=== PATIENT | female | born 1995 | race Caucasian/White ===

== ENCOUNTER 2019-05-09 15:22 | Emergency (ER) | payer MEDICAID, SELFPAY ==
[2019-05-09 15:40] VITALS: BP 138/85; PULSE 73; RESP 16; TEMP 36.8; O2SAT 100; BMI 18.0
--- NOTE | 2019-05-09 15:52 | W.ED.GENADLT ---
HPI - General Adult General: Chief complaint: General Medical Stated complaint: N/V Time Seen by Provider: 05/09/19 15:49 History of Present Illness: HPI narrative: Patient is a 23-year-old female who comes to the ED with nausea and vomiting. The nausea and vomiting started this morning when she woke up. She says she has vomited about 5 times since woke up this morning and has been unable to keep anything down. She currently does not feel nauseous that she knows last time she tried to eat or drink anything she started getting nauseous afterwards and vomited. She denies any fever, But says she starting having the chills. Patient states she could be . Her last period was 2 weeks ago and she says it was abnormally light and only lasted 5 days. She says her normal periods last for a week and have moderate bleeding. She does not have any abdominal pain or tenderness and denies diarrhea or constipation. Denies chest pain, shortness of breath, upper respiratory symptoms, dysuria, hematuria. Review of Systems General: Reports: 10 or more systems reviewed and unremarkable except in HPI and below PFSH ED PFSH: Statuses (acute, chronic, etc) shown below reflect problem list status as previously entered and may not be historically accurate Social History Smoking and tobacco status: never smoked Female Reproductive History: Date of last menstrual period: 05/02/19 Physical Exam Narrative: EXAM NARRATIVE: Patient is a 23-year-old female who is sitting comfortably on the exam bed when I entered the room. She is showing no signs of acute distress or pain. Const: COMMON NORMALS: oriented x3 HENMT: COMMON NORMALS: normocephalic HEAD & SCALP: normocephalic MOUTH: oral and palatal mucosa normal THROAT: posterior oropharynx normal and uvula midline Neck/C-Spine: COMMON NORMALS: supple GENERAL: Yes normal visual inspection Resp: COMMON NORMALS: normal respiratory effort, no retractions, no use of accessory muscles and clear to auscultation bilaterally AUSCULTATION: clear to auscultation bilaterally Cardio: COMMON NORMALS: regular rate, regular rhythm, S1 normal heart sound, S2 normal heart sound, no gallops, no clicks, no murmurs and peripheral pulses 2+ throughout RATE: regular rate RHYTHM: regular rhythm HEART SOUNDS: S1 normal and S2 normal PERIPHERAL PULSES: pulses 2+ throughout GI: COMMON NORMALS: normal to inspection, nondistended, normoactive bowel sounds, soft to palpation, non-tender and no masses PALPATION: Yes soft : COMMON NORMALS: Yes no CVA tenderness BLADDER/KIDNEY EXAM: Yes no CVA tenderness Back/Pelvis: COMMON NORMALS: no CVA tenderness Neuro: COMMON NORMALS: oriented x3 and moves all extremities Course Vital Signs: Vital signs: Vital Signs Temperature 98.3 F 05/09/19 15:40 Pulse Rate 61 05/09/19 17:44 Respiratory Rate 16 05/09/19 15:40 Blood Pressure 119/81 05/09/19 17:44 Pulse Oximetry 100 05/09/19 17:44 [facility] - General Adult Lab Data: Attestation: I reviewed the patient's lab results. Labs: Lab Results 05/09/19 05/09/19 05/09/19 Range/Units 15:55 15:55 15:55 WBC 9.0 (4.0-10.0) 10^3/ uL RBC 4.29 (4.1-5.3) 10^6/u L Hgb 12.0 (11.5-15.3) g/dL Hct 36.1 L (37.0-47.0) % MCV 84.1 (81-99) fL MCH 28.0 (28.0-34.0) pg MCHC 33.2 (30.0-36.0) g/dL RDW 11.9 L (12.1-15.1) % Plt Count 369 (130-400) 10^3/c mm MPV 10.3 (7.4-10.4) fL Neut % (Auto) 84.4 % Lymph % (Auto) 10.6 % [place] % (Auto) 4.1 % Eos % (Auto) 0.2 % Baso % (Auto) 0.4 % Neut # (Auto) 7.6 (1.8-7.7) 10^3/u L Lymph # (Auto) 1.0 (0.8-4.8) 10^3/u L [place] # (Auto) 0.4 (0.2-0.9) 10^3/u L Eos # (Auto) 0.0 (0.0-0.8) 10^3/u L Baso # (Auto) 0.0 (0.0-0.1) 10^3/u L Nucleated RBC % (a uto) 0 % Nucleated RBCs # 0.0 /100WBC Sodium 141 (136-145) mmol/L Potassium 3.2 L (3.5-5.1) mmol/L Chloride 103 (98-107) mmol/L Carbon Dioxide 26 (22-29) mmol/L Anion Gap 15.2 (5-19) BUN 9 (6-20) mg/dL Creatinine 0.6 (0.5-0.9) mg/dL GFR Calculation 126.2 (90-130) mL/min Glucose 124 H (74-109) mg/dL Calcium 10.0 (8.5-10.5) mg/dL Total Bilirubin 0.4 (0.15-1.2) mg/dL AST 22 (0-32) U/L ALT 20 (0-33) U/L Alkaline Phosphata se 102 (35-105) IU/L Total Protein 7.4 (6.6-8.7) g/dL Albumin 4.8 (3.5-5.2) g/dL Globulin 2.6 (1.3-4.6) g/dL TSH 0.83 (0.27-4.20) uIU/ mL HCG, Qual Negative (Negative) Urine Color (Yellow) Urine Appearance (CLEAR) Urine pH (5-7) Ur Specific Gravit y (1.005-1.030) Urine Protein (Negative) Urine Glucose (UA) (Normal) Urine Ketones (Negative) Urine Occult Blood (Negative) Urine Nitrate (Negative) Urine Bilirubin (NEGATIVE) Urine Urobilinogen (Negative) mg/dL Ur Leukocyte Lesley ase (Negative) Urine RBC (0-2) /hpf Urine WBC (0-5) /hpf Ur Squamous Epith Cells (0-5) Urine Bacteria (NONE) Hyaline Casts Urine Mucus 05/09/19 Range/Units 16:00 WBC (4.0-10.0) 10^3/ uL RBC (4.1-5.3) 10^6/u L Hgb (11.5-15.3) g/dL Hct (37.0-47.0) % MCV (81-99) fL MCH (28.0-34.0) pg MCHC (30.0-36.0) g/dL RDW (12.1-15.1) % Plt Count (130-400) 10^3/c mm MPV (7.4-10.4) fL Neut % (Auto) % Lymph % (Auto) % [place] % (Auto) % Eos % (Auto) % Baso % (Auto) % Neut # (Auto) (1.8-7.7) 10^3/u L Lymph # (Auto) (0.8-4.8) 10^3/u L [place] # (Auto) (0.2-0.9) 10^3/u L Eos # (Auto) (0.0-0.8) 10^3/u L Baso # (Auto) (0.0-0.1) 10^3/u L Nucleated RBC % (a uto) % Nucleated RBCs # /100WBC Sodium (136-145) mmol/L Potassium (3.5-5.1) mmol/L Chloride (98-107) mmol/L Carbon Dioxide (22-29) mmol/L Anion Gap (5-19) BUN (6-20) mg/dL Creatinine (0.5-0.9) mg/dL GFR Calculation (90-130) mL/min Glucose (74-109) mg/dL Calcium (8.5-10.5) mg/dL Total Bilirubin (0.15-1.2) mg/dL AST (0-32) U/L ALT (0-33) U/L Alkaline Phosphata se (35-105) IU/L Total Protein (6.6-8.7) g/dL Albumin (3.5-5.2) g/dL Globulin (1.3-4.6) g/dL TSH (0.27-4.20) uIU/ mL HCG, Qual (Negative) Urine Color Yellow (Yellow) Urine Appearance Sl hazy (CLEAR) Urine pH 8 H (5-7) Ur Specific Gravit y 1.015 (1.005-1.030) Urine Protein Trace (Negative) Urine Glucose (UA) Norm (Normal) Urine Ketones 1+ H (Negative) Urine Occult Blood 2+ H (Negative) Urine Nitrate Negative (Negative) Urine Bilirubin Neg (NEGATIVE) Urine Urobilinogen 4 H (Negative) mg/dL Ur Leukocyte Lesley ase Trace H (Negative) Urine RBC 0-4 H (0-2) /hpf Urine WBC 15-25 H (0-5) /hpf Ur Squamous Epith Cells 15-25 H (0-5) Urine Bacteria 1+ H (NONE) Hyaline Casts Rare Urine Mucus 1+ Discharge Plan Discharge Patient Disposition: Home, Self-Care Clinical Impression: Gastroenteritis Condition: Stable Discharge Orders: Discharge Order (Routine); Ordered 05/09/19 Ordered By: Cruz Ozuna Referrals: Conor Candelaria MD [Family Provider] - Discharge Diet: Advance as tolerated Discharge Activity: Increase activity as tolerated Patient Instructions: Acute Nausea and Vomiting (ED) Activity Restrictions/Additional Instructions: Follow-up with medical provider as directed. Take medications as prescribed. Return to the ER or your medical provider if condition worsens. Please read and understand discharge instructions. If any questions ask please. Discharge Date/Time: 05/09/19 17:44 Coding Level of Care Code ED Bead Wrapper for Katie Thompson
[2019-05-09 16:02] VITALS: O2SAT 100
[2019-05-09 16:19] LABS: Basophils % 0.4 %; Eosinophils % 0.2 %; Hematocrit 36.1 % (37.0-47.0); Lymphocytes % 10.6 %; Mean Corpuscular HGB Conc 33.2 g/dL (30.0-36.0); Mean Corpuscular Volume 84.1 fL (81-99); Mean Platelet Volume 10.3 fL (7.4-10.4); Monocytes # 0.4 10^3/uL (0.2-0.9); Monocytes % 4.1 %; Neutrophils # 7.6 10^3/uL (1.8-7.7); Neutrophils % 84.4 %; Nucleated Red Blood Cells % 0 %; Platelet Count 369 10^3/cmm (130-400); Red Blood Count 4.29 10^6/uL (4.1-5.3); Red Cell Distribution Width 11.9 % (12.1-15.1)
[2019-05-09] MEDS: ondansetron 2 mg/ML SDV 2 mL 4 MG IVP (16:31)
[2019-05-09] MEDS: sodium chloride 0.9% 1,000 ML 999 ML IV (16:31)
[2019-05-09] MEDS: ketorolac 30 mg/mL INJ IVP (16:31)
[2019-05-09 16:38] LABS: HCG, Serum Qual Negative (Negative)
[2019-05-09 16:53] LABS: Alanine Aminotransferase 20 U/L (0-33); Albumin Level 4.8 g/dL (3.5-5.2); Alkaline Phosphatase 102 IU/L (35-105); Anion Gap 15.2 (5-19); Aspartate Amino Transferase 22 U/L (0-32); Blood Urea Nitrogen 9 mg/dL (6-20); Carbon Dioxide 26 mmol/L (22-29); Chloride 103 mmol/L (98-107); Creatinine Clr Calc Pharmacy 121.4521; Globulin 2.6 g/dL (1.3-4.6); Glomerular Filtration Rate 126.2 mL/min (90-130); Glucose 124 mg/dL (74-109); Potassium 3.2 mmol/L (3.5-5.1); Sodium 141 mmol/L (136-145); Thyroid Stimulating Hormone 0.83 uIU/mL (0.27-4.20); Total Bilirubin 0.4 mg/dL (0.15-1.2); Total Protein 7.4 g/dL (6.6-8.7)
[2019-05-09 16:55] LABS: Urine Appearance SL Hazy (CLEAR); Urine Color Yellow (Yellow)
[2019-05-09 16:56] LABS: Add Urine Microscopic? YES; Bilirubin Urine Neg (NEGATIVE); Blood Urine 2+ (Negative); Glucose Urine UA Norm (Normal); Ketones Urine 1+ (Negative); Leukocyte Esterase Urine Trace (Negative); Nitrate Urine Negative (Negative); Protein Urine Trace (Negative); Specific Gravity, Urine 1.015 (1.005-1.030); Urobilinogen Urine 4 mg/dL (Negative); pH Urine 8 (5-7)
[2019-05-09 16:58] LABS: Hyaline Casts Urine RARE; Mucus Urine 1+
[2019-05-09 16:59] LABS: Bacteria Urine 1+; RBC Urine 0-4 /hpf (0-2); Squamous Epithelial Cell Urine 15-25 (0-5); WBC Urine 15-25 /hpf (0-5)
[2019-05-09 17:00] LABS: Add Urine Culture? No
[2019-05-09 17:44] VITALS: BP 119/81; PULSE 61; O2SAT 100
== END 2019-05-09 17:44 | disposition home or self-care (01) ==
PROVIDERS: Emergency Provider Physician Assistant; Family Provider Family Medicine
DX: K52.9 Noninfective gastroenteritis and colitis, unspecified (principal)
CPT/HCPCS: 36415; 80053; 81001; 84443; 84703; 85025; 96360; 96374; 99282; J1885; J2405; J7030

== ENCOUNTER 2019-09-09 19:45 | Emergency (ER) | payer MEDICAID, SELFPAY ==
[2019-09-09 19:54] VITALS: BP 144/73; PULSE 79; RESP 18; TEMP 36.9; O2SAT 99; BMI 19.7
--- NOTE | 2019-09-09 20:25 | W.ED.GENADLT ---
HPI - General Adult General: Chief complaint: General Medical Stated complaint: n/v, 14 weeks preg Time Seen by Provider: 09/09/19 20:16 History of Present Illness: HPI narrative: Lizzette is a nice 23-year-old female who comes in complaining of her nausea and vomiting. She is 14 weeks with her second . She is 2 para 1. She thinks that she is vomited at least 20+ times today. She denies any hematic emesis. She denies any abdominal pain, pelvic pain, vaginal discharge or bleeding, dysuria or urinary frequency/urgency. Patient denies problems with daily morning sickness today has just been a bad day with the nausea and vomiting. She denies any headache, fevers or chills, cough, chest pain or lightheadedness or dizziness. She came in because she cannot get the vomiting and nausea to subside. She is not had anything at home to take for this. Associated symptoms: Reports nausea and vomiting; Deny chest pain, confusion, diaphoresis, dyspnea, headache(s), malaise, rash, palpitations or syncope Review of Systems Const: Denies: fever(s), chills, body aches, fatigue, malaise, night sweats or diaphoresis Eyes: Denies: change in vision, blurry vision or blind spots ENMT: Denies: throat pain, odynophagia, hoarseness, ear or mastoid pain, ear discharge, change in hearing or nasal discharge Card: Denies: chest pain, palpitations, irregular heart rhythm, lightheadedness, syncope, pre-syncope, dyspnea on exertion or orthopnea Resp: Denies: dyspnea, productive cough, non-productive cough, wheezing, hemoptysis or chest congestion GI: Reports: nausea and vomiting; Denies: abdominal pain, hematemesis, coffee ground emesis, heartburn, diarrhea, constipation, GI cramping, hematochezia or melena : Denies: flank pain, dysuria, urinary frequency, urinary urgency, oliguria, urinary incontinence or hematuria Musc: Denies: neck pain, back pain, extremity pain, extremity swelling, joint pain, joint swelling, joint redness, joint warmth or joint stiffness Skin/Breast: Denies: rash, pruritus, erythema, skin tenderness or jaundice Neuro: Denies: headache(s), numbness in extremities, weakness in extremities, sensory changes, lack of coordination, difficulty walking, dizziness, vertigo, confusion or Slurred speech present Endo: Denies: polyuria, polydipsia, tired all the time, cold intolerance, excessive sweating, flushing, hot flashes or heat intolerance Jovon/Lymph: Denies: easy bruising, easy bleeding, petechiae, purpura or enlarged lymph nodes All/Imm: Denies: urticaria, throat swelling, tongue swelling, facial swelling or acute wheezing PFSH ED PFSH: Medical History No pertinent past medical history Surgical History S/P hernia surgery Social History Smoking and tobacco status: never smoked Female Reproductive History: Date of last menstrual period: 05/30/19 Physical Exam Const: COMMON NORMALS: no acute distress, patient oriented x3, no limitations, healthy appearing and well nourished EXAM LIMITATIONS: no altered mental status GENERAL APPEARANCE: cooperative, well kempt and well developed HENMT: COMMON NORMALS: normocephalic, atraumatic, hearing grossly normal bilaterally, external ears normal, EAC's normal, Normal external nose present and moist oral mucous membranes HEAD & SCALP: normal to inspection, normocephalic and atraumatic FACE & SINUS: normal facial exam and face symmetric NOSE: Normal external nose present and Normal nares present EXTERNAL EAR: Yes external ears normal EXTERNAL AUDITORY CANAL: EAC's normal MOUTH: Normal oral and palatal mucosa present, lip normal and tongue normal Eye: COMMON NORMALS: Equal, round and reactive pupils present, EOMs intact bilaterally, conjunctivae normal and no scleral icterus GENERAL EYE: appearance normal, both eyes and all related structures ALIGNMENT: Yes alignment normal PERIORBITAL: periorbital findings normal EYELID: eyelids normal CONJUNCTIVA: Yes conjunctivae normal SCLERA: sclerae normal PUPIL: Yes Equal, round and reactive pupils present Neck/C-Spine: COMMON NORMALS: full ROM, no lymphadenopathy, supple, no meningeal signs and no JVD GENERAL: Yes normal visual inspection and Yes trachea midline CERVICAL SPINE: Yes cervical ROM normal Chest: COMMONS NORMALS: normal inspection of the chest and normal palpation of entire chest wall Resp: COMMON NORMALS: normal respiratory effort, No retractions, No use of accessory muscles and clear to auscultation bilaterally EFFORT & INSPECTION: Yes able to speak in complete sentences AUSCULTATION: clear to auscultation bilaterally, no crackles, no rales, no rhonchi and no wheezes Cardio: COMMON NORMALS: no JVD, regular rate, regular rhythm, S1 normal heart sound present, S2 normal heart sound present, No gallops present (Cardio), No clicks present (Cardio), No murmurs present (Cardio) and No rub (Cardio) RATE: regular rate RHYTHM: regular rhythm HEART SOUNDS: S1 normal heart sound present, S2 normal heart sound present, no click, no gallops, no murmurs and no rubs GI: COMMON NORMALS: Soft to palpation, non-tender, No hepatosplenomegaly present and no masses PALPATION: Yes Soft to palpation, No Tenderness to palpation present (GI), No Guarding due to palpation present (GI), No Rigid due to palpation, Yes No hepatosplenomegaly present, No Hernia present, No Palpable mass present and No Pulsatile mass present : COMMON NORMALS: Yes no CVA tenderness BLADDER/KIDNEY EXAM: Yes no CVA tenderness EXTERNAL FEMALE EXAM: No Hernia present Back/Pelvis: COMMON NORMALS: no CVA tenderness, thoracic and lumbar spine normal to inspection, no thoracic nor lumbar tenderness and thoraco-lumbar ROM normal Extremity: COMMON NORMALS: normal to inspection, full ROM, capillary refill normal, no joint enlargement, no clubbing, cyanosis or edema and no calf tenderness Neuro: COMMON NORMALS: patient oriented x3, CN's II-XII intact bilaterally, moves all extremities, no focal motor deficits and no sensory deficits noted MENINGEAL SIGNS: Yes no meningeal signs SPEECH: speech normal Psych: COMMON NORMALS: mental status grossly normal, Normal thought process present, cooperative, normal affect, speech normal and activity/motor behavior normal APPEARANCE: Yes well kempt SPEECH: Yes normal speech THOUGHT PROCESS: Normal thought process present Skin: COMMON NORMALS: no rashes or lesions noted, turgor normal, no jaundice, no petechiae and no mottling GENERAL SKIN EXAM: no rashes or lesions noted and turgor normal Course ED course: 2039 -bedside ultrasound performed by me reveals single live intrauterine with a normal heart rate ranging from 120-160. Good movement was observed. No evidence of any subchronic hemorrhage. Vital Signs: Vital signs: Vital Signs Temperature 98.5 F 09/09/19 19:54 Pulse Rate 79 09/09/19 23:01 Respiratory Rate 14 09/09/19 23:01 Blood Pressure 134/72 09/09/19 23:01 Pulse Oximetry 97 09/09/19 23:01 MDM - General Adult MDM Narrative: Medical decision making narrative: Lizzette is a very nice 23-year-old female who comes in with intractable nausea and vomiting. 1 dose of Reglan and 2 L of IV fluids and she states that she is feeling tremendously better. She has been able to tolerate eating and drinking here without vomiting or even feeling nauseous. She is denying any abdominal pain, vaginal discharge or bleeding or anything else that is likely to be related. She is not having routine bad morning sickness. At this time she is feeling so much better she is asking to go home. I have ordered a repeat urinalysis on a cath specimen as she was contaminated but she is refusing this. She does agree to take antibiotics but is refusing a repeat urinalysis. She agrees to return should her symptoms change or worsen. She agrees to follow-up with Dr. Castelan for recheck. Further care can be dictated with Dr. Castelan in the office. Patient does understand she can return here if she worsens. Lab Data: Attestation: I reviewed the patient's lab results. Labs: Lab Results 09/09/19 09/09/19 09/09/19 Range/Units 20:32 20:32 20:32 WBC 14.1 H (4.0-10.0) 10^3/ uL RBC 4.05 L (4.1-5.3) 10^6/u L Hgb 12.1 (11.5-15.3) g/dL Hct 35.5 L (37.0-47.0) % MCV 87.7 (81-99) fL MCH 29.9 (28.0-34.0) pg MCHC 34.1 (30.0-36.0) g/dL RDW 13.3 (12.1-15.1) % Plt Count 257 (130-400) 10^3/c mm MPV 9.8 (7.4-10.4) fL Neut % (Auto) 90.2 % Lymph % (Auto) 5.3 % [place] % (Auto) 3.6 % Eos % (Auto) 0.1 % Baso % (Auto) 0.2 % Neut # (Auto) 12.7 H (1.8-7.7) 10^3/u L Lymph # (Auto) 0.8 (0.8-4.8) 10^3/u L [place] # (Auto) 0.5 (0.2-0.9) 10^3/u L Eos # (Auto) 0.0 (0.0-0.8) 10^3/u L Baso # (Auto) 0.0 (0.0-0.1) 10^3/u L Nucleated RBC % (a uto) 0 % Nucleated RBCs # 0.0 /100WBC Sodium 134 L (136-145) mmol/L Potassium 3.6 (3.5-5.1) mmol/L Chloride 100 (98-107) mmol/L Carbon Dioxide 21 L (22-29) mmol/L Anion Gap 16.6 (5-19) BUN 8 (6-20) mg/dL Creatinine 0.4 L (0.5-0.9) mg/dL GFR Calculation 201.5 H (90-130) mL/min Glucose 103 (65-115) mg/dL Calculated Osmolal ity 274 L (285-295) mOsm/k g Calcium 8.7 (8.5-10.5) mg/dL Total Bilirubin 0.3 (0.15-1.2) mg/dL AST 16 (0-32) U/L ALT 8 (0-33) U/L Alkaline Phosphata se 73 (35-105) IU/L Total Protein 7.0 (6.6-8.7) g/dL Albumin 3.9 (3.5-5.2) g/dL Globulin 3.1 (1.3-4.6) g/dL Lipase 19 (13-60) U/L Ser , [place] 41785.00 mIU/mL Urine Color Yellow (Yellow) Urine Appearance Cloudy A (CLEAR) Urine pH 5 (5-7) Ur Specific Gravit y 1.025 (1.005-1.030) Urine Protein Neg (Negative) Urine Glucose (UA) Norm (Normal) Urine Ketones 3+ H (Negative) Urine Blood Neg (Negative) Urine Nitrate Negative (Negative) Urine Bilirubin Neg (NEGATIVE) Urine Urobilinogen Norm (Negative) mg/dL Ur Leukocyte Lesley ase 2+ H (Negative) Urine RBC None (0-2) /hpf Urine WBC 15-25 H (0-5) /hpf Ur Squamous Epith Cells 15-25 H (0-5) Urine Bacteria 1+ H (NONE) Urine Mucus 2+ Discharge Plan Discharge Patient Disposition: Home, Self-Care Clinical Impression: Acute dehydration Vomiting Qualifiers: Vomiting type: unspecified Vomiting Intractability: non-intractable Nausea presence: with nausea Qualified Code(s): R11.2 - Nausea with vomiting, unspecified UTI (urinary tract infection) Qualifiers: Urinary tract infection type: site unspecified Hematuria presence: without hematuria Qualified Code(s): N39.0 - Urinary tract infection, site not specified Condition: Stable Prescriptions: New Reglan 10 mg tablet 10 mg PO Q6H PRN (Reason: nausea and vomiting) Qty: 20 RF: 0 cefdinir 300 mg capsule 300 mg PO Q12H 10 Days Qty: 20 RF: 0 No Action levothyroxine 50 mcg tablet 50 mcg PO DAILY RF: 0 28 mg iron- 800 mcg Tablet 1 tab PO DAILY RF: 0 Discharge Orders: Discharge Order (Routine); Ordered 09/09/19 Ordered By: Maureen Man Referrals: Kendra Castelan MD [Physician] - 1-3 days Conor Candelaria MD [Primary Care Provider] - Discharge Diet: Advance as tolerated Discharge Activity: Increase activity as tolerated Patient Instructions: Dehydration (ED), Acute Nausea and Vomiting (ED) Activity Restrictions/Additional Instructions: Please return to the ER immediately for any of the signs or symptoms listed on your discharge instruction sheets, worsening/changing of your symptoms, you are not getting better as quickly as expected, or for ANY other cause or concerns. You are leaving without complete evaluation and care. Be put yourself at risk of further harm including your child by not receiving complete evaluation. If your symptoms change or worsen in any way please return to the ER immediately for recheck. Be certain to follow-up with Dr. Castelan for recheck as soon as possible. Discharge Date/Time: 09/09/19 23:03 Coding Level of Care Code ED Environmental Research Scientist for Chg Fwd Exam Comprehensive
[2019-09-09 20:38] LABS: Basophils % 0.2 %; Eosinophils % 0.1 %; Hematocrit 35.5 % (37.0-47.0); Hemoglobin 12.1 g/dL (11.5-15.3); Lymphocytes # 0.8 10^3/uL (0.8-4.8); Lymphocytes % 5.3 %; Mean Corpuscular HGB Conc 34.1 g/dL (30.0-36.0); Mean Corpuscular Hemoglobin 29.9 pg (28.0-34.0); Mean Corpuscular Volume 87.7 fL (81-99); Mean Platelet Volume 9.8 fL (7.4-10.4); Monocytes # 0.5 10^3/uL (0.2-0.9); Monocytes % 3.6 %; Neutrophils # 12.7 10^3/uL (1.8-7.7); Neutrophils % 90.2 %; Nucleated Red Blood Cells % 0 %; Platelet Count 257 10^3/cmm (130-400); Red Blood Count 4.05 10^6/uL (4.1-5.3); Red Cell Distribution Width 13.3 % (12.1-15.1); White Blood Count 14.1 10^3/uL (4.0-10.0)
[2019-09-09 20:52] LABS: Bilirubin Urine Neg (NEGATIVE); Blood Urine Neg (Negative); Glucose Urine UA Norm (Normal); Ketones Urine 3+ (Negative); Leukocyte Esterase Urine 2+ (Negative); Nitrate Urine Negative (Negative); Protein Urine Neg (Negative); Specific Gravity, Urine 1.025 (1.005-1.030); Urine Appearance Cloudy (CLEAR); Urine Color Yellow (Yellow); Urobilinogen Urine Norm (Negative); pH Urine 5 (5-7)
[2019-09-09 20:53] LABS: Bacteria Urine 1+; Mucus Urine 2+; Squamous Epithelial Cell Urine 15-25 (0-5); WBC Urine 15-25 /hpf (0-5)
[2019-09-09 20:54] LABS: Add Urine Culture? No
[2019-09-09 21:05] LABS: Alanine Aminotransferase 8 U/L (0-33); Albumin Level 3.9 g/dL (3.5-5.2); Alkaline Phosphatase 73 IU/L (35-105); Anion Gap 16.6 (5-19); Aspartate Amino Transferase 16 U/L (0-32); Blood Urea Nitrogen 8 mg/dL (6-20); Calcium 8.7 mg/dL (8.5-10.5); Carbon Dioxide 21 mmol/L (22-29); Chloride 100 mmol/L (98-107); Globulin 3.1 g/dL (1.3-4.6); Glomerular Filtration Rate 201.5 mL/min (90-130); Glucose 103 mg/dL (65-115); Lipase 19 U/L (13-60); Osmolality Calculated 274 mOsm/kg (285-295); Potassium 3.6 mmol/L (3.5-5.1); Sodium 134 mmol/L (136-145); Total Bilirubin 0.3 mg/dL (0.15-1.2)
[2019-09-09] MEDS: metoclopramide 5 mg/mL SDV 2 mL 10 MG IV (21:18)
[2019-09-09] MEDS: sodium chloride 0.9% 1,000 ML 999 ML IV (21:20)
[2019-09-09 23:01] VITALS: BP 134/72; PULSE 79; RESP 14; O2SAT 97
[2019-09-09] MEDS: cefdinir 300 MG CAPSULE PO (23:01)
== END 2019-09-09 23:03 | disposition home or self-care (01) ==
PROVIDERS: Emergency Provider Emergency Medicine; PCP Family Medicine
DX: O23.42 Unspecified infection of urinary tract in pregnancy, second trimester (principal); Z3A.14 14 weeks gestation of pregnancy; O26.892 Other specified pregnancy related conditions, second trimester; E86.0 Dehydration; R11.2 Nausea with vomiting, unspecified
CPT/HCPCS: 12345; 36415; 80053; 81001; 83690; 84702; 85025; 96361; 96374; 99282; 99283; J2765; J7030

== ENCOUNTER 2020-03-05 17:07 | Inpatient (IN) | payer MEDICAID, SELFPAY ==
[2020-03-05] VITALS (22 sets, daily range): BP systolic 0–144; BP diastolic 0–103; PULSE 58–94; RESP 18; TEMP 36.7–37.2; O2SAT 98; BMI 20.9
[2020-03-05] MEDS: lactated ringers 1,000 ML 999 ML IV (17:04)
[2020-03-05] MEDS: ampicillin 2,000 MG in sodium chloride 0.9% (plus) 50 ML 100 MG IV (17:05)
[2020-03-05 17:14] LABS: Basophils # 0.1 10^3/uL (0.0-0.1); Basophils % 0.3 %; Hematocrit 37.9 % (37.0-47.0); Hemoglobin 12.7 g/dL (11.5-15.3); Lymphocytes # 1.3 10^3/uL (0.8-4.8); Lymphocytes % 5.7 %; Mean Corpuscular HGB Conc 33.5 g/dL (30.0-36.0); Mean Corpuscular Hemoglobin 28.7 pg (28.0-34.0); Mean Corpuscular Volume 85.7 fL (81-99); Mean Platelet Volume 11.2 fL (7.4-10.4); Monocytes % 4.5 %; Neutrophils # 20.19 10^3/uL (1.8-7.7); Neutrophils % 88.3 %; Nucleated Red Blood Cells % 0 %; Platelet Count 288 10^3/cmm (130-400); Red Blood Count 4.42 10^6/uL (4.1-5.3); Red Cell Distribution Width 13.2 % (12.1-15.1); White Blood Count 22.9 10^3/uL (4.0-10.0)
[2020-03-05] MEDS: oxytocin 30 UNIT/500 ML BAG 600 UNIT IV (17:54)
--- NOTE | 2020-03-05 17:56 | P.HP_ITS ---
Providers/Chief Complaint Admitting Physician: Kareem Jones MD Primary Care Provider: Conor Candelaria MD Chief Complaint: Abdominal pain History of Present Illness Lizzette Max is a 24 year old at 39.1 weeks gestation by LMP consistent with 20-week ultrasound. According to the patient her was uncomplicated. The patient is O+. Rubella immune. GBS positive. The patient was seen by Dr. Castelan until approximately 30 weeks gestation and then transferred care to [facility] in [place]. The patient presented to labor and delivery triage secondary to contractions that had significantly increased. She had been 4 cm dilated in clinic yesterday. The patient denied any bleeding or leakage of fluid. Upon presentation at labor and delivery she was 7 cm dilated. Patient denies any chest pains, shortness of breath, cough, fever, dysuria, leakage of fluid, nausea, vomiting, diarrhea, constipation. Medications/Allergies Home Medications Medication Instructions Recorded Confirmed Last Taken Type PNV cmb#95-ferrous fumarate-FA 1 tab PO DAILY 09/09/19 09/09/19 09/09/19 History [] levothyroxine 50 mcg PO DAILY 09/09/19 09/09/19 09/09/19 History metoclopramide HCl [Reglan] 10 mg PO Q6H PRN #20 tab 09/09/19 Unknown Rx Allergies Allergy/AdvReac Type Severity Reaction Status Date / Time No Known Allergies Allergy Verified 05/09/19 15:46 PFSH Acute PFSH: Medical History (Updated 03/05/20 @ 18:02 by Kareem Jones MD) No pertinent past medical history Surgical History S/P hernia surgery Social History Smoking and tobacco status: never smoked Female Reproductive History: Date of last menstrual period: 05/30/19 : 2 Vitals/I&O/Wt Last Vital Signs Temp 98.0 F 03/05/20 16:48 Pulse 82 03/05/20 17:50 Resp 18 03/05/20 16:48 BP 134/67 03/05/20 17:50 Weight last 48 hrs Weight 118 lb Physical Exam Narrative: EXAM NARRATIVE: General: Alert and oriented x3 Eyes: Pupils equal round and reactive to light and accommodation Mouth: Mucous membranes moist, pharynx non-erythematous Cardiac: Regular rate and rhythm without murmurs Lungs: Clear to auscultation bilaterally without wheezes, crackles or rhonchi Abdomen: Soft, non-tender, fundus consistent with gestational age Extremities: Trace edema in the bilateral lower extremities Data : 03/05/20 17:00 A&P Additional A&P Information The patient presented to labor and delivery triage and was noted to be 7 cm dilated. She progressed rapidly and delivered quickly. She had a category 1 tracing. Contractions were every 2 to 4 minutes. The patient did not have time for a laboring epidural. The patient was started on ampicillin and the first dose was given prior to delivery, however for less than approximately 15 minutes. Please see labor and delivery note for full details. Attestations Medical Necessity Statement*: The patient will be here for greater than 2 midnights due to routine intrapartum and management of labor and delivery. Coding Level of Care Code Acute Circuit [employer] Judge for Katie Thompson
--- NOTE | 2020-03-05 18:04 | P.PCNOB_ITS ---
Delivery Note: Date of delivery: March 05, 2020 Pre-delivery diagnoses: 1. Intrauterine at 39.1 weeks gestation 2. GBS positive 3. Late transfer of care Post-delivery diagnoses: 1. Intrauterine status post spontaneous vaginal delivery at 39.1 weeks gestation 2. GBS positive 3. Transfer of care 4. Delivery of healthy infant male weighing 7 pounds 4 ounces with Apgars of 9 and 9 Procedure: Spontaneous vaginal delivery Op report anesthesia: None Delivering Physician: Kareem Jones MD Estimated blood loss (mL): 50 Findings: 1. Delivery of healthy infant male weighing 7 pounds 4 ounces with Apgars of 9 and 9 2. Intact placenta with central umbilical cord insertion site. Pre-Delivery Course: The patient presented to labor and delivery triage and spontaneous labor. She was 7 cm dilated upon admission. She was GBS positive and the first dose of ampicillin was given, however she progressed rapidly and there was not time for a laboring epidural. I offered the patient to try and wait for this versus a problem since she was already 9-1/2 cm by that time and she decided to proceed with AROM to expedite the delivery process. AROM was performed at 1730 on 03/05/2020. The fluid was clear. She was complete at 1731 on 03/05/2020. Delivery: The mother began pushing at 1732 on 03/05/2020. The patient pushed well and the delivered at 1738 on 03/05/2020 in the OA position. The left shoulder was the anterior shoulder and it delivered with ease. The rest of the infant delivered with ease. The mouth and nose were bulb suctioned by myself. The was crying immediately after delivery. The was placed on the mother's lap where the nurses were awaiting to care for him. The cord was clamped by myself after approximately 1 minute. The cord was cut by the infant's grandmother. Cord blood was obtained. The cord was then drained of blood and traction was placed on the umbilical cord and fundal massage was carried out. The placenta delivered without complication at 1743 on 03/05/2020. The placenta was noted to be intact with a central umbilical cord insertion site. IV Pitocin was bolused. The cervix was inspected and no lacerations were noted. The vaginal wall was inspected and a first-degree right labial laceration was noted that was not bleeding and did not need suturing. The uterus is currently firm and midline. Currently both the mother and infant are doing well. Coding Level of Care Code Acute Director Of Compensation for Katie Thompson
[2020-03-05 18:47] LABS: Amphetamines Screen Urine Negative (Negative); Barbiturates Screen Urine Negative (Negative); Benzodiazepines Screen Urine Negative (Negative); Cocaine Screen Urine Negative (Negative); Opiate Screen Urine Negative (Negative); PCP Screen Urine Negative (Negative); THC Screen Urine Negative (Negative)
[2020-03-05] MEDS: ibuprofen 800 mg tablet PO (21:18)
[2020-03-06 01:40] VITALS: BP 99/52; PULSE 52; RESP 18; TEMP 36.7
[2020-03-06 03:50] VITALS: BP 91/50; PULSE 57; RESP 18; TEMP 36.7
[2020-03-06 06:37] LABS: Hematocrit 32.3 % (37.0-47.0); Hemoglobin 10.6 g/dL (11.5-15.3); Mean Corpuscular HGB Conc 32.8 g/dL (30.0-36.0); Mean Corpuscular Hemoglobin 28.3 pg (28.0-34.0); Mean Corpuscular Volume 86.4 fL (81-99); Platelet Count 229 10^3/cmm (130-400); Red Blood Count 3.74 10^6/uL (4.1-5.3); Red Cell Distribution Width 13.4 % (12.1-15.1)
[2020-03-06 08:11] VITALS: BP 118/74; PULSE 67; RESP 18; TEMP 36.8; O2SAT 99
[2020-03-06] MEDS: benzocaine-menthol 78 gm Canister 1 SPRAY TOPICAL (08:20)
[2020-03-06] MEDS: prenatal vitamin Capsule 1 CAP PO (08:21)
[2020-03-06] MEDS: docusate sodium 100 mg Capsule PO ×2 (08:21→18:58)
[2020-03-06] MEDS: ibuprofen 800 mg tablet PO ×3 (08:21→21:37)
[2020-03-06 11:41] VITALS: BP 120/76; PULSE 54; RESP 18; TEMP 36.7; O2SAT 100
--- NOTE | 2020-03-06 12:50 | PM.PN ---
Subjective Subjective: Interval history: The patient is feeling well today. Her bleeding is decreasing well. Her pain is well controlled. She is ambulating, voiding, passing gas and tolerating food by mouth. She has no concerns at this time. Vitals/I&O/Wt Last Vital Signs Temp 98.0 F 03/06/20 11:41 Pulse 54 L 03/06/20 11:41 Resp 18 03/06/20 11:41 BP 120/76 03/06/20 11:41 Pulse Ox 100 03/06/20 11:41 03/05/20 03/06/20 03/06/20 22:59 06:59 14:59 Intake Total 600 / 600 Output Total 300 / 300 400 / 700 700 / 700 Balance -300 / -300 -400 / -700 -100 / -100 Weight last 48 hrs Weight 118 lb Physical Exam Narrative: EXAM NARRATIVE: General: Alert and oriented x3 Cardiac: Regular rate and rhythm without murmurs Lungs: Clear to auscultation bilaterally without wheezes, crackles or rhonchi Abdomen: Soft, non-tender, fundus is firm and 2 cm below the umbilicus. Extremities: Trace edema in the bilateral lower extremities Data : 03/06/20 06:20 A&P Additional A&P Information Patient is doing well at this time. She has no concerns. Continue with routine care. Routine instructions were discussed. All questions were answered. Plan for discharge home tomorrow as long as she continues to do well. Attestations Medical Necessity Statement*: Patient will be here for greater than 2 midnights due to routine intrapartum and management of labor and delivery. Coding Level of Care Code Acute Surveillance Dual Rate Officer for Katie Thompson
[2020-03-06 16:01] VITALS: BP 121/81; PULSE 69; RESP 18; TEMP 36.8; O2SAT 99
[2020-03-06 21:00] VITALS: BP 136/80; PULSE 66; RESP 16; TEMP 36.7; O2SAT 99
[2020-03-07 05:20] VITALS: BP 133/81; PULSE 59; RESP 16; TEMP 36.4; O2SAT 100
--- NOTE | 2020-03-07 08:35 | PM.DCS ---
Discharge Providers Date of Admission: 03/05/20 17:07 Date of Discharge: March 07, 2020 Attending Provider at Admission: Kareem Jones MD Attending Provider at Discharge: Kareem Jones MD Primary Care Provider: Conor Candelaria MD Diagnoses at Discharge Other Information Additional DC diagnoses/information: 1. Intrauterine status post spontaneous vaginal delivery at 39.1 weeks gestation 2. GBS positive 3. Transfer of care 4. Delivery of healthy male weighing 7 pounds 4 ounces with Apgars of 9 and 9 Reason for Visit Reason for Visit: Abdominal pain Hospital Course Hospital Course Pre-Delivery Course: The patient presented to labor and delivery triage and spontaneous labor. She was 7 cm dilated upon admission. She was GBS positive and the first dose of ampicillin was given, however she progressed rapidly and there was not time for a laboring epidural. I offered the patient to try and wait for this versus a problem since she was already 9-1/2 cm by that time and she decided to proceed with AROM to expedite the delivery process. AROM was performed at 1730 on 03/05/2020. The fluid was clear. She was complete at 1731 on 03/05/2020. Delivery: The mother began pushing at 1732 on 03/05/2020. The patient pushed well and the delivered at 1738 on 03/05/2020 in the OA position. The left shoulder was the anterior shoulder and it delivered with ease. The rest of the infant delivered with ease. The mouth and nose were bulb suctioned by myself. The infant was crying immediately after delivery. The was placed on the mother's lap where the nurses were awaiting to care for him. The cord was clamped by myself after approximately 1 minute. The cord was cut by the infant's grandmother. Cord blood was obtained. The cord was then drained of blood and traction was placed on the umbilical cord and fundal massage was carried out. The placenta delivered without complication at 1743 on 03/05/2020. The placenta was noted to be intact with a central umbilical cord insertion site. IV Pitocin was bolused. The cervix was inspected and no lacerations were noted. The vaginal wall was inspected and a first-degree right labial laceration was noted that was not bleeding and did not need suturing. The uterus is currently firm and midline. course: The patient is doing well and has had no complications. Her bleeding is decreasing well. She is ambulating, voiding, passing gas and tolerating food by mouth. Routine discharge instructions were given and all questions were answered. The patient is to follow-up with her primary OB at 6 weeks . Physical Exam Narrative: EXAM NARRATIVE: General: Alert and oriented x3 Cardiac: Regular rate and rhythm without murmurs Lungs: Clear to auscultation bilaterally without wheezes, crackles or rhonchi Abdomen: Soft, non-tender, fundus is firm and 2 cm below the umbilicus. Extremities: Trace edema in the bilateral lower extremities Discharge Data Data Completed and Pending: Pending at discharge Category Date Time Status PTC COVID [Lazaro virus Lab Test PTC ] Routine Lab 03/06/20 20:20 Received Labs from last 24 hours 03/06/20 20:20 Nasal/Oral COVID-1 9 PCR Pending Vitals: Last Vital Signs Temp 97.6 F 03/07/20 05:20 Pulse 59 L 03/07/20 05:20 Resp 16 03/07/20 05:20 BP 133/81 03/07/20 05:20 Pulse Ox 100 03/07/20 05:20 Discharge Plan Discharge Patient Disposition: Home Condition: Good Prescriptions: New ibuprofen 800 mg Tablet 800 mg PO TID Qty: 60 RF: 0 ferrous sulfate 325 mg (65 mg iron) tablet 325 mg PO BID Qty: 30 RF: 0 Continued levothyroxine 50 mcg tablet 50 mcg PO DAILY RF: 0 28 mg iron- 800 mcg Tablet 1 tab PO DAILY RF: 0 Discontinued Reglan 10 mg tablet 10 mg PO Q6H PRN (Reason: nausea and vomiting) Qty: 20 RF: 0 Discharge Orders: Discharge Order (Routine); Ordered 03/07/20 Ordered By: Kareem Jones Discharge Diet: Regular Discharge Activity: Increase activity as tolerated Patient Instructions: Vaginal Delivery (DC), OB Discharge Report, OB Anesthesia Instructions, OB Food/Drug Interaction Guide, OB Home Care, OB Proud Parent Packet Activity Restrictions/Additional Instructions: Nothing per vagina for 6 weeks. Please make a follow-up appointment with your primary OB provider at 6 weeks . Discharge Attestations Time Spent in Discharge Care*: less than 30 min Quality Metrics Clinical Quality Measures During this hospital stay, did patient experience: None Coding Level of Care Code Acute Oracle Pl Sql Developer for Katie Thompson
[2020-03-07] MEDS: docusate sodium 100 mg Capsule PO (09:34)
[2020-03-07] MEDS: ibuprofen 800 mg tablet PO ×2 (09:34→15:36)
[2020-03-07] MEDS: prenatal vitamin Capsule 1 CAP PO (09:34)
[2020-03-07 09:40] VITALS: BP 127/79; PULSE 95; TEMP 36.7; O2SAT 99
[2020-03-07 15:40] VITALS: BP 131/66; PULSE 82; TEMP 37.1; O2SAT 99
[2020-03-07 17:55] VITALS: BP 131/66; PULSE 82; RESP 16; TEMP 37.1; O2SAT 99
[2020-03-08 09:59] LABS: Coronavirus Lab Test PTC Negative
== END 2020-03-07 18:00 | disposition home or self-care (01) | DRG 807 ==
LOC: OPOB 17:09 → OBGYN 17:09
PROVIDERS: Admitting Provider Family Medicine; Family Provider Family Medicine; PCP Family Medicine; Visit Provider Family Medicine
DX: O99.824 Streptococcus B carrier state complicating childbirth (principal); Z37.0 Single live birth; Z3A.39 39 weeks gestation of pregnancy; O70.0 First degree perineal laceration during delivery
CPT/HCPCS: 12345; 36415; 59409; 80306; 85025; 85027; 87635; J0290

== ENCOUNTER → 2021-06-14 11:52 | Outpatient (BNVA) | payer BC, MEDICAID, SELFPAY | PROVIDERS: Family Provider Family Medicine; PCP Family Medicine; Visit Provider Obstetrics & Gynecology | DX: O26.859 Spotting complicating pregnancy, unspecified trimester (principal) | CPT/HCPCS: 84702 ==

== ENCOUNTER 2021-06-17 13:24 | Outpatient (CLI) | payer BC, MEDICAID, SELFPAY | END 2021-06-17 13:25 | disposition home or self-care (01) | PROVIDERS: Obstetrics & Gynecology; Family Provider Family Medicine; PCP Family Medicine | DX: O20.9 Hemorrhage in early pregnancy, unspecified (principal) | CPT/HCPCS: 84702 ==

== ENCOUNTER → 2021-06-23 08:00 | Outpatient (BNVA) | payer BC, MEDICAID, SELFPAY | PROVIDERS: Family Provider Family Medicine; PCP Family Medicine; Visit Provider Nurse Practitioner Women's Health | DX: O20.0 Threatened abortion (principal) | CPT/HCPCS: 81025; 84439; 84443; 84702; 85027; 86850; 86900; 87491; 87591; 87661 ==

== ENCOUNTER 2021-06-26 08:18 | Outpatient (CLI) | payer BC, MEDICAID, SELFPAY | END 2021-06-26 08:19 | disposition home or self-care (01) | LOC: LAB 08:20 | PROVIDERS: PCP Family Medicine; Visit Provider Obstetrics & Gynecology | DX: O20.0 Threatened abortion (principal) | CPT/HCPCS: 84702 ==

== ENCOUNTER 2021-07-07 15:24 | Outpatient (CLI) | payer BC, MEDICAID, SELFPAY ==
[2021-07-07 16:21] LABS: HCG Quantitative 91.41 mIU/mL
== END 2021-07-07 15:25 | disposition home or self-care (01) ==
PROVIDERS: Nurse Practitioner Women's Health; PCP Family Medicine; Visit Provider Family Medicine
DX: O20.0 Threatened abortion (principal)
CPT/HCPCS: 84702

== ENCOUNTER → 2021-07-10 16:05 | Outpatient (BNVA) | payer BC, MEDICAID, SELFPAY | PROVIDERS: PCP Family Medicine; Visit Provider Obstetrics & Gynecology | DX: O36.70X0 Maternal care for viable fetus in abdominal pregnancy, unspecified trimester, not applicable or unspecified (principal); Z3A.00 Weeks of gestation of pregnancy not specified | CPT/HCPCS: 76830 ==

== ENCOUNTER → 2021-07-26 09:21 | Outpatient (BNVA) | payer BC, MEDICAID, SELFPAY | PROVIDERS: PCP Family Medicine; Visit Provider Nurse Practitioner Women's Health | DX: O03.4 Incomplete spontaneous abortion without complication (principal) | CPT/HCPCS: 84702 ==

== ENCOUNTER → 2022-07-29 15:30 | Outpatient (BNVA) | payer BC, MEDICAID, SELFPAY | PROVIDERS: PCP Family Medicine; Visit Provider Nurse Practitioner Family | DX: J02.0 Streptococcal pharyngitis (principal) | CPT/HCPCS: 87070; 87077 ==

== ENCOUNTER → 2023-06-20 10:00 | Outpatient (BNVA) | payer BC, MEDICAID, SELFPAY | PROVIDERS: PCP Family Medicine; Visit Provider Nurse Practitioner Women's Health | DX: N92.6 Irregular menstruation, unspecified (principal); R30.0 Dysuria | CPT/HCPCS: 81025; 84702 ==

== ENCOUNTER → 2023-10-04 10:57 | Outpatient (BNVA) | payer BC, MEDICAID, SELFPAY | PROVIDERS: PCP Family Medicine; Visit Provider Emergency Medicine | DX: N92.6 Irregular menstruation, unspecified (principal); Z32.02 Encounter for pregnancy test, result negative | CPT/HCPCS: 81025 ==

== ENCOUNTER → 2024-05-01 12:53 | Outpatient (BNVA) | payer BC, MEDICAID, SELFPAY | PROVIDERS: PCP Family Medicine; Visit Provider Nurse Practitioner Women's Health | DX: N91.2 Amenorrhea, unspecified (principal) | CPT/HCPCS: 81025 ==

== ENCOUNTER → 2024-05-07 08:54 | Outpatient (BNVA) | payer BC, MEDICAID, SELFPAY | PROVIDERS: PCP Family Medicine; Visit Provider Nurse Practitioner Women's Health | DX: N91.2 Amenorrhea, unspecified (principal) | CPT/HCPCS: 76801 ==

== ENCOUNTER → 2024-05-28 09:44 | Outpatient (BNVA) | payer BC, MEDICAID, SELFPAY | PROVIDERS: PCP Family Medicine; Visit Provider Nurse Practitioner Women's Health | DX: Z34.90 Encounter for supervision of normal pregnancy, unspecified, unspecified trimester (principal) | CPT/HCPCS: 80307; 84315; 84439; 84443; 85025; 86592; 86762; 86803; 86850; 86900; 87086; 87340; 87806 ==

== ENCOUNTER → 2024-06-11 09:04 | Outpatient (BNVA) | payer BC, MEDICAID, SELFPAY | PROVIDERS: PCP Family Medicine; Visit Provider Obstetrics & Gynecology | DX: Z34.80 Encounter for supervision of other normal pregnancy, unspecified trimester (principal); Z01.419 Encounter for gynecological examination (general) (routine) without abnormal findings; Z34.90 Encounter for supervision of normal pregnancy, unspecified, unspecified trimester | CPT/HCPCS: 84315; 87491; 87591; 87624; 87661 ==

== ENCOUNTER → 2024-07-06 13:58 | Outpatient (BNVA) | payer BC, MEDICAID, SELFPAY | PROVIDERS: PCP Family Medicine; Visit Provider Nurse Practitioner Women's Health | DX: Z34.80 Encounter for supervision of other normal pregnancy, unspecified trimester (principal) | CPT/HCPCS: 87086 ==

== ENCOUNTER → 2024-07-14 08:09 | Outpatient (BNVA) | payer BC, MEDICAID, SELFPAY | PROVIDERS: PCP Family Medicine; Visit Provider Nurse Practitioner Women's Health | DX: Z34.80 Encounter for supervision of other normal pregnancy, unspecified trimester (principal); Z22.330 Carrier of Group B streptococcus; Z30.2 Encounter for sterilization | CPT/HCPCS: 82105; 84315; 84439; 84443; 87086; 88175 ==

== ENCOUNTER → 2024-08-11 09:33 | Outpatient (BNVA) | payer BC, MEDICAID, SELFPAY | PROVIDERS: PCP Family Medicine; Visit Provider Nurse Practitioner Women's Health | DX: Z34.82 Encounter for supervision of other normal pregnancy, second trimester (principal) | CPT/HCPCS: 76805 ==

== ENCOUNTER → 2024-08-20 08:46 | Outpatient (BNVA) | payer BC, MEDICAID, SELFPAY | PROVIDERS: PCP Family Medicine; Visit Provider Nurse Practitioner Women's Health | DX: Z34.82 Encounter for supervision of other normal pregnancy, second trimester (principal) | CPT/HCPCS: 84315 ==

== ENCOUNTER → 2024-09-08 15:21 | Outpatient (BNVA) | payer BC, MEDICAID, SELFPAY | PROVIDERS: PCP Family Medicine; Visit Provider Nurse Practitioner Women's Health | DX: Z36.9 Encounter for antenatal screening, unspecified (principal); Z34.80 Encounter for supervision of other normal pregnancy, unspecified trimester | CPT/HCPCS: 76816; 82950; 84315 ==

== ENCOUNTER → 2024-10-02 13:02 | Outpatient (BNVA) | payer BC, MEDICAID, SELFPAY | PROVIDERS: PCP Family Medicine; Visit Provider Nurse Practitioner Women's Health | DX: Z34.80 Encounter for supervision of other normal pregnancy, unspecified trimester (principal); Z22.330 Carrier of Group B streptococcus; Z30.2 Encounter for sterilization | CPT/HCPCS: 84315; 85025 ==

== ENCOUNTER → 2024-10-15 14:08 | Outpatient (BNVA) | payer BC, MEDICAID, SELFPAY | PROVIDERS: PCP Family Medicine; Visit Provider Nurse Practitioner Women's Health | DX: Z34.80 Encounter for supervision of other normal pregnancy, unspecified trimester (principal) | CPT/HCPCS: 84315 ==

== ENCOUNTER → 2024-10-30 13:55 | Outpatient (BNVA) | payer BC, MEDICAID, SELFPAY | PROVIDERS: PCP Family Medicine; Visit Provider Obstetrics & Gynecology | DX: Z34.80 Encounter for supervision of other normal pregnancy, unspecified trimester (principal) | CPT/HCPCS: 84315 ==

== ENCOUNTER → 2024-11-13 13:40 | Outpatient (BNVA) | payer BC, MEDICAID, SELFPAY | PROVIDERS: PCP Family Medicine; Visit Provider Nurse Practitioner Women's Health | DX: Z34.80 Encounter for supervision of other normal pregnancy, unspecified trimester (principal); Z22.330 Carrier of Group B streptococcus; Z30.2 Encounter for sterilization | CPT/HCPCS: 84315; 87086 ==

== ENCOUNTER → 2024-11-27 10:48 | Outpatient (BNVA) | payer BC, MEDICAID, SELFPAY | PROVIDERS: PCP Family Medicine; Visit Provider Nurse Practitioner Women's Health | DX: Z34.80 Encounter for supervision of other normal pregnancy, unspecified trimester (principal) | CPT/HCPCS: 84315 ==

== ENCOUNTER 2024-12-04 16:54 | Outpatient (CLI) | payer BC, MEDICAID, SELFPAY ==
[2024-12-04] VITALS (13 sets, daily range): BP systolic 117–139; BP diastolic 73–86; PULSE 67–82; BMI 25.0
== END 2024-12-04 20:59 | disposition home or self-care (01) ==
LOC: OPOB 16:55 → OBGYN 16:56
PROVIDERS: Absent Provider Obstetrics & Gynecology; PCP Family Medicine; Visit Provider Obstetrics & Gynecology
DX: O26.899 Other specified pregnancy related conditions, unspecified trimester (principal); Z3A.00 Weeks of gestation of pregnancy not specified; R10.9 Unspecified abdominal pain
CPT/HCPCS: 59025; 99211

== ENCOUNTER 2024-12-20 20:07 | Outpatient (CLI) | payer BC, MEDICAID, SELFPAY ==
[2024-12-20] VITALS (11 sets, daily range): BP systolic 126–142; BP diastolic 82–91; PULSE 57–76; RESP 17; TEMP 35.4–36.1; O2SAT 97; BMI 25.0
== END 2024-12-20 22:04 | disposition home or self-care (01) ==
LOC: OPOB 20:07 → OBGYN 20:07
PROVIDERS: PCP Family Medicine; Visit Provider Obstetrics & Gynecology
DX: O26.899 Other specified pregnancy related conditions, unspecified trimester (principal); Z3A.00 Weeks of gestation of pregnancy not specified; R10.9 Unspecified abdominal pain
CPT/HCPCS: 59025; 99211

== ENCOUNTER 2024-12-23 01:04 | Inpatient (IN) | payer BC, MEDICAID, SELFPAY ==
[2024-12-23] VITALS (118 sets, daily range): BP systolic 101–149; BP diastolic 58–98; PULSE 55–133; RESP 16; TEMP 36.4–36.9; O2SAT 97–99; BMI 24.7
[2024-12-23 01:07] LABS: Hematocrit 36.0 % (36-47); Hemoglobin 12.40 g/dL (11.27-16.99); Mean Corpuscular HGB Conc 34.4 g/dL (30-55); Mean Corpuscular Hemoglobin 30.4 pg (27-33); Mean Corpuscular Volume 88.2 fl (85-98); Nucleated Red Blood Cells % 0 %; Platelet Count 221 10^3/cmm (157-399); Red Blood Count 4.08 10^6/uL (3.85-5.65); White Blood Count 11.28 10^3/uL (3.29-11.43)
[2024-12-23] MEDS: penicillin g potassium 5,000,000 UNIT in sodium chloride 0.9% (plus) 100 ML 100 UNIT IV (01:26)
--- NOTE | 2024-12-23 02:40 | PM.OBGYHP ---
Providers/Chief Complaint Admitting Physician: Ganga Cantu MD Primary Care Provider: Conor Candelaria MD Chief Complaint: SROM HPI MANAGER PMO History of Present Illness Lizzette Max is a 29 year old female A1 EDC December 23, 2024 At 40 w 0 d No complications Presented to L&D c/o loss of fluid and uterine contractions No bleeding + active movements h/o x two Present Details : 5 Para: 3 Labs Rubella: Immune RPR: Negative GBS: Positive Medications/Allergies Allergies Allergy/AdvReac Type Severity Reaction Status Date / Time No Known Allergies Allergy Verified 12/21/24 01:20 PFSH MANAGER PMO PFSH: Medical History (Updated 12/11/24 @ 14:40 by Mazin Livingston MD) GBS carrier No pertinent past medical history neghx: htn,dm,dvt/pe PCP: Dr. Candelaria Hypothyroid Told this was just during --not on medication since 2020; last TSH in 2019. Surgical History S/P hernia surgery (~2006) above the umbilicus Family History Grandmother Diabetes Maternal Mother Hypertension Denies family history of Colon cancer Ovarian cancer Heart disease Hypercholesteremia Breast cancer Uterine cancer Thyroid disease Stroke Social History Smoking and tobacco/nicotine status: never used tobacco/nicotine History History History 4 Term 2 0 Miscarriages/Ectopic 1 Living Children 2 Care NOEMI Calculator Estimated Delivery Date Method Current WG Current Estimate 12/23/24 Ultrasound #1 40w 0d Specific Issues/Plans desires sterilization - counseled on 06/11/2024 (GIANNI papers signed 10/02/24) GBS CARRIER; tx; yoselin negative; Prophylaxis in L/D HEARTBURN-- pepcid 40mg daily Vitals/I&O/Wt Last Vital Signs Temp 97.9 F 12/23/24 06:00 Pulse 68 12/23/24 07:31 BP 125/82 12/23/24 07:31 Pulse Ox 98 12/23/24 04:44 O2 Del Method Room Air 12/23/24 00:35 0912/23/24 12/23/24 22:59 06:59 14:59 Output Total 350 / 350 Balance -350 / -350 Weight last 48 hrs Weight 140 lb Physical Exam Narrative: Weight 145 lbs, 5?3? VS normal General awake, alert Lungs: clear Cor: RRR Abd: nontender FH 37 cm, cephalic Perineum + clear fluid Cervix 3 cm / 50% / -3 Ext: no edema External monitor: + regular uterine contractions heart tracing good variability, + accelerations Urinary Catheter Management: Salcedo: Cath Placed During This Visit: yes, but has since been removed by the nurse Reason for Continuing Indwelling Catheter: Decision to DC Catheter Urinary Catheter Date of Insertion: 12/23/24 Urinary Catheter Time of Insertion: 04:15 Date Urinary Catheter Removed: 12/23/24 Time Urinary Catheter Discontinued: 06:06 Data 12/23/24 00:45 Results Labs OB ([facility]): Obstetrics 09/08/24 Blood Type O Positive Today Antibody Screen Negative Today Hct, (36-47) 36.0 % Today Hgb, (11.27-16.99) 12.40 g/dL Today Rho(D) Type Rh positive Today Plt Count, (157-399) 221 10^3/cmm Today Hep Bs Antigen, (Nonreactive) Non-reactive 05/28/24 Hepatitis C Antibody, (Nonreactive) Non-reactive 05/28/24 Rubella IgG Antibody, (0.0-10.0) 420.4 IU/mL H 05/28/24 RPR, (Nonreactive) Nonreactive 05/28/24 HIV 1&2 Ab & HIV 1 Ag, (Non-Reactiv) Non-reactive 05/28/24 TSH, (0.27-4.20) 3.67 uIU/mL 07/14/24 Free T4, (0.82-1.77) 0.89 ng/dL 07/14/24 Glucose 1 Hr 50 gm, (85-140) 110 mg/dL 09/08/24 Ser , Semi-Qnt 1.00 mIU/mL 06/20/23 HCG, Qual, (Negative) Positive H 05/01/24 Urine Opiates Screen, (Negative) Negative ng/mL 05/28/24 Ur Barbiturates Screen, (Negative) Negative ng/mL 05/28/24 Ur Phencyclidine Scrn, (Negative) Negative ng/mL 05/28/24 Ur Amphetamines Screen, (Negative) Negative ng/mL 05/28/24 U Benzodiazepines Scrn, (Negative) Negative ng/mL 05/28/24 Urine Cocaine Screen, (Negative) Negative ng/mL 05/28/24 U Marijuana (THC) Screen, (Negative) Negative ng/mL 05/28/24 Micro Urine Specimen 11/13/24 Pap Smear Interpret See note 07/14/24 A&P Assessment and plan 1. Supervision of other normal : 40 w 0 d Spontaneous rupture of membranes Active labor Plan admit 2. GBS carrier: Start Abx PDMP PDMP Reviewed: Not Reviewed Attestations Medical Necessity Statement*: patient at 40 w 0 d, with active labor Coding Level of Care Code Acute Code for Chg Fwd Diagnoses Supervision of other normal Z34.80 GBS carrier Z22.330
--- NOTE | 2024-12-23 03:29 | ANES.PREANE2 ---
Pre-Anesthetic Assessment Height/Weight: Height 1.6 m Weight 63.503 kg Pulse BP Pulse Ox O2 Del Method 67 149/90 98 Room Air 12/23/24 03:24 12/23/24 03:21 12/23/24 03:24 12/23/24 00:35 Preop Diagnosis: IUP epidural Familial anesthetic complications: none Was Beta Carol taken within 24 hours: N/A Was Clonidine taken within 24 hours: N/A Social No alcohol and No tobacco Exam alert and oriented x 3 Airway Submandibular: within normal limits Cervical ROM: within normal limits Mallampati: Class II Dentition: full History/ROS No significant complaints Anesthetic Plan ASA status: 2 Anesthesia: Anesthesia Evaluation and Regional (specify below) Risk of > 500 ml blood loss (7ml/kg in children): Yes, adequate IV access and fluids planned Medications/Allergies Home Medications ?Medication ?Instructions ?Recorded ?Confirmed ?Last Taken ?Type docosahexaenoic acid 200 mg 200 mg PO 1XD 05/01/24 12/20/24 12/20/24 History capsule ( DHA) famotidine 40 mg tablet 40 mg PO DAILY #30 tabs 11/13/24 12/20/24 12/19/24 Rx Allergies Allergy/AdvReac Type Severity Reaction Status Date / Time No Known Allergies Allergy Verified 12/21/24 01:20 Current Medications Generic Name Dose Route Start Last Admin Trade Name Freq PRN Reason Stop Dose Admin Dextrose/Lactated Ringer's 1,000 mls @ 125 mls/hr 12/23/24 01:00 12/23/24 01:26 Dextrose 5%-Lactated Ringers IV 125 mls/hr .Q8H MOOSE Administration PFSH Anesthesia Medical History (Updated 12/11/24 @ 14:40 by Mazin Livingston MD) GBS carrier No pertinent past medical history neghx: htn,dm,dvt/pe PCP: Dr. Candelaria Hypothyroid Told this was just during --not on medication since 2020; last TSH in 2019. Surgical History S/P hernia surgery (~2006) above the umbilicus Family History Grandmother Diabetes Maternal Mother Hypertension Denies family history of Colon cancer Ovarian cancer Heart disease Hypercholesteremia Breast cancer Uterine cancer Thyroid disease Stroke Social History Smoking and tobacco/nicotine status: never used tobacco/nicotine Female Reproductive History : 5 Data Anesthesia 12/23/24 00:45 Short CBC 12/23/24 Range/Units 00:45 WBC 11.28 (3.29-11.43) 10^3/uL Hgb 12.40 (11.27-16.99) g/dL Hct 36.0 (36-47) % MCV 88.2 (85-98) fl Plt Count 221 (157-399) 10^3/cmm Neut % (Auto) 71.1 % Neut # (Auto) 8.02 H (1.8-7.7) 10^3/uL Blood Bank 12/23/24 00:45 Blood Type O Positive Rho(D) Type Rh positive Antibody Screen Negative Anesthesia Procedures Epidural Time Out Performed: Yes Consents Signed: Procedure Consent Consent: from patient, risks and benefits reviewed and patient agrees to proceed Lumbar Level: L3-L4 Epidural position: sitting Epidural procedure: sterile prep of area, 1% lidocaine to numb the area, 18 g needle, negative for paresthesia passed, test dose given, 1.5% xylocaine 1:200k epi, placed PCEA, no systemic response, sterile dressing applied, L.U.D. no apparent complications and 0.2% Ropiavacaine @ mls/hr (10) Additional Comments: ABDI at 4.5, negative heme/CSF with aspiration. taped at 11 at skin. tolerated well.
[2024-12-23] MEDS: ROPivacaine premix 200 MG/100 ML PREMIX 10 MG EPIDURAL (03:31)
[2024-12-23] MEDS: PENICILLIN G POTASSIUM 2,500,000 UNIT/50 ML BAG 50 UNIT IV (05:21)
[2024-12-23] MEDS: ondansetron 2 mg/ML SDV 2 mL 4 MG IVP (05:52)
[2024-12-23] MEDS: oxytocin 30 UNIT/500 ML BAG 600 UNIT IV (06:25)
--- NOTE | 2024-12-23 06:35 | PM.DELIVERY ---
Delivery Note: Date of delivery: December 23, 2024 Pre-delivery diagnoses: 40 w 0 d spontaneous rupture of membranes active labor Post-delivery diagnoses: 40 w 0 d spontaneous rupture of membranes active labor vaginal delivery Procedure: vaginal delivery Op report anesthesia: Epidural Delivering Physician: Ganga Cantu MD Estimated blood loss (mL): 300 Findings: , vigorous male Cord gases and blood obtained Normal placenta and cord No episiotomy / lacerations EBL 300 cc No complications Pre-Delivery Course: normal labor course fetus reassuring throughout Delivery: vaginal Post-Delivery Status: good History History History 4 Term 2 0 Miscarriages/Ectopic 1 Living Children 2 A&P Assessment and plan 1. Vaginal delivery: PDMP PDMP Reviewed: Not Reviewed Coding Level of Care Code Acute Code for Chg Fwd Diagnoses Vaginal delivery O80
[2024-12-23] MEDS: PRENATAL VIT NO.130/IRON/FOLIC 1 EACH TABLET PO (09:36)
[2024-12-23 18:52] LABS: Hematocrit 32.5 % (36-47); Hemoglobin 11.10 g/dL (11.27-16.99); Mean Corpuscular HGB Conc 34.2 g/dL (30-55); Mean Corpuscular Hemoglobin 29.8 pg (27-33); Mean Corpuscular Volume 87.4 fl (85-98); Platelet Count 192 10^3/cmm (157-399); Red Blood Count 3.72 10^6/uL (3.85-5.65); White Blood Count 12.66 10^3/uL (3.29-11.43)
[2024-12-24 04:43] VITALS: BP 115/75; PULSE 65; RESP 16; TEMP 36.8; O2SAT 97
--- NOTE | 2024-12-24 08:00 | ANE.PACU2 ---
Inpatient post-anesthesia follow up: Vital signs: Temperature 98.1 F Pulse Rate 74 Respiratory Rate 17 Blood Pressure 117/81 Pulse Oximetry 98 Oxygen Delivery Me thod Room Air Oxygen Flow Rate Fraction of Inspir ed Oxygen
--- NOTE | 2024-12-24 08:00 | ANE.PACU2 ---
Inpatient post-anesthesia follow up: Airway intact: Yes Vital signs: Temperature 98.1 F Pulse Rate 74 Respiratory Rate 17 Blood Pressure 117/81 Pulse Oximetry 98 Oxygen Delivery Me thod Room Air Oxygen Flow Rate Fraction of Inspir ed Oxygen Hydration adequate: Yes Nausea and vomiting: No Pain level: 1 Mental status: Baseline Epidural Start/End: Epidural Start Date: 12/23/24 Epidural Start Time: 03:07 Epidural End Date: 12/23/24 Epidural End Time: 13:40
[2024-12-24] MEDS: PRENATAL VIT NO.130/IRON/FOLIC 1 EACH TABLET PO (10:45)
[2024-12-24 10:49] VITALS: BP 124/80; PULSE 73; RESP 16; TEMP 36.7
[2024-12-24 13:15] VITALS: BP 117/81; PULSE 74; RESP 17; TEMP 36.7; O2SAT 98
--- NOTE | 2024-12-24 14:10 | PM.OBGYPN ---
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 fundus firm Ext: no edema; nontender Hgb 11.1 Urinary Catheter Management: Salcedo: Cath Placed During This Visit: yes, but has since been removed by the nurse Reason for Continuing Indwelling Catheter: Decision to DC Catheter Urinary Catheter Date of Insertion: 12/23/24 Urinary Catheter Time of Insertion: 04:15 Date Urinary Catheter Removed: 12/23/24 Time Urinary Catheter Discontinued: 06:06 Data 12/23/24 18:20 A&P Assessment and plan 1. Vaginal delivery: PPD #1 doing well discharge to home today instructions and precautions given call/return if fever, chills, headache, blurry vision, nausea, vomiting, abdominal pain; vaginal bleeding or discharge; shortness of breath, chest pain, leg pains or swelling; inability to void, perineal pain or swelling; feelings of depression or mood changes; thoughts of suicide or harming others; inability to care for baby. f/u in 6 weeks or PRN PDMP PDMP Reviewed: Not Reviewed Attestations Medical Necessity Statement*: patient s/p vaginal delivery, plan to discharge to home today Coding Level of Care Code Acute Code for Chg Fwd Diagnoses Vaginal delivery O80
--- NOTE | 2024-12-24 14:20 | PM.OBGYDC ---
Discharge Providers [employer] Date of Admission: 12/23/24 01:04 Date of Discharge: 12/24/24 Attending Provider at Admission: Ganga Cantu MD Attending Provider at Discharge: Ganga Cantu MD Consults: none Primary NAVAL INSPECTOR: Ganag Cantu MD Primary Care Provider: Conor Candelaria MD Diagnoses at Discharge Discharge Diagnosis 1. Vaginal delivery: Details from hospital stay: 29 y.o. A1 [facility] December 23, 2024 At 40 w 0 d No complications Presented to L&D c/o loss of fluid and uterine contractions cervix was at 3 cm patient progressed to complete cervical dilatation fetus was reassuring throughout patient delivered vaginally without any complications patient did well and was discharged to home on the first day Reason for Visit Reason for Visit: SROM Brief History: 29 y.o. A1 [facility] December 23, 2024 At 40 w 0 d No complications Presented to L&D c/o loss of fluid and uterine contractions Hospital Course Hospital Course 29 y.o. A1 [facility] December 23, 2024 At 40 w 0 d No complications Presented to L&D c/o loss of fluid and uterine contractions cervix was at 3 cm patient progressed to complete cervical dilatation fetus was reassuring throughout patient delivered vaginally without any complications patient did well and was discharged to home on the first day Information Peripartum Data: Infant Delivery Method: Vaginal Laceration description: None Episiotomy description: None complications: none Physical Exam Narrative: afebrile, VS normal comfortable, awake, alert Lungs: clear Cor: RRR Abd: soft, nontender. fundus firm Ext: no edema; nontender Hgb 11.1 Urinary Catheter Management: [place]cedo: Cath Placed During This Visit: yes, but has since been removed by the nurse Reason for Continuing Indwelling Catheter: Decision to DC Catheter Urinary Catheter Date of Insertion: 12/23/24 Urinary Catheter Time of Insertion: 04:15 Date Urinary Catheter Removed: 12/23/24 Time Urinary Catheter Discontinued: 06:06 History History History 4 Term 3 0 Miscarriages/Ectopic 1 Living Children 3 Discharge Data Studies Completed and Pending Laboratory Results WBC 12.66 10^3/uL (3.29-11.43) H 12/23/24 18:20 RBC 3.72 10^6/uL (3.85-5.65) L 12/23/24 18:20 Hgb 11.10 g/dL (11.27-16.99) L 12/23/24 18:20 Hct 32.5 % (36-47) L 12/23/24 18:20 MCV 87.4 fl (85-98) 12/23/24 18:20 MCH 29.8 pg (27-33) 12/23/24 18:20 MCHC 34.2 g/dL (30-55) 12/23/24 18:20 RDW 12.6 % (12.1-15.1) 12/23/24 18:20 Plt Count 192 10^3/cmm (157-399) 12/23/24 18:20 MPV 11.5 fL (7.4-10.4) H 12/23/24 18:20 Neut % (Auto) 71.1 % 12/23/24 00:45 Lymph % (Auto) 20.0 % 12/23/24 00:45 Stanley % (Auto) 7.1 % 12/23/24 00:45 Eos % (Auto) 0.4 % 12/23/24 00:45 Baso % (Auto) 0.4 % 12/23/24 00:45 Neut # (Auto) 8.02 10^3/uL (1.8-7.7) H 12/23/24 00:45 Lymph # (Auto) 2.3 10^3/uL (0.8-4.8) 12/23/24 00:45 Stanley # (Auto) 0.8 10^3/uL (0.2-0.9) 12/23/24 00:45 Eos # (Auto) 0.1 10^3/uL (0.0-0.8) 12/23/24 00:45 Baso # (Auto) 0.0 10^3/uL (0.0-0.1) 12/23/24 00:45 Nucleated RBC % (auto) 0 % 12/23/24 00:45 Nucleated RBCs # 0.0 /100WBC 12/23/24 00:45 Blood Type O Positive 12/23/24 00:45 Rho(D) Type Rh positive 12/23/24 00:45 Antibody Screen Negative 12/23/24 00:45 Procedures Performed vaginal delivery Vitals Last Vital Signs Temp 98.1 F 12/24/24 13:15 Pulse 74 12/24/24 13:15 Resp 17 12/24/24 13:15 BP 117/81 12/24/24 13:15 Pulse Ox 98 12/24/24 13:15 O2 Del Method Room Air 12/24/24 10:49 Results Labs OB ([facility]): Obstetrics US 09/08/24 Blood Type O Positive 12/23/24 Antibody Screen Negative 12/23/24 Hct, (36-47) 32.5 % L 12/23/24 Hgb, (11.27-16.99) 11.10 g/dL L 12/23/24 Rho(D) Type Rh positive 12/23/24 Plt Count, (157-399) 192 10^3/cmm 12/23/24 Hep Bs Antigen, (Nonreactive) Non-reactive 05/28/24 Hepatitis C Antibody, (Nonreactive) Non-reactive 05/28/24 Rubella IgG Antibody, (0.0-10.0) 420.4 IU/mL H 05/28/24 RPR, (Nonreactive) Nonreactive 05/28/24 HIV 1&2 Ab & HIV 1 Ag, (Non-Reactiv) Non-reactive 05/28/24 TSH, (0.27-4.20) 3.67 uIU/mL 07/14/24 Free T4, (0.82-1.77) 0.89 ng/dL 07/14/24 Glucose 1 Hr 50 gm, (85-140) 110 mg/dL 09/08/24 Ser , Semi-Qnt 1.00 mIU/mL 06/20/23 HCG, Qual, (Negative) Positive H 05/01/24 Urine Opiates Screen, (Negative) Negative ng/mL 05/28/24 Ur Barbiturates Screen, (Negative) Negative ng/mL 05/28/24 Ur Phencyclidine Scrn, (Negative) Negative ng/mL 05/28/24 Ur Amphetamines Screen, (Negative) Negative ng/mL 05/28/24 U Benzodiazepines Scrn, (Negative) Negative ng/mL 05/28/24 Urine Cocaine Screen, (Negative) Negative ng/mL 05/28/24 U Marijuana (THC) Screen, (Negative) Negative ng/mL 05/28/24 Micro Urine Specimen 11/13/24 Pap Smear Interpret See note 07/14/24 Discharge Plan Discharge Patient Disposition: Home Condition: Stable Prescriptions: Continued [id number] 1 mg Tablet 1 tab PO DAILY Discharge Order = DC NOW: Discharge Order (Routine); Ordered 12/24/24 Ordered By: Ganga Cantu Referrals: Maryanne Medina NP [Nurse Practitioner, [employer]] - 02/04/25 9:45 am Discharge Diet: Usual diet Discharge Activity: Increase activity as tolerated Patient Instructions: Depression (DC), Opioid Safety (DC), Preeclampsia and Eclampsia After Delivery (GEN), Hemorrhage (DC), OB Discharge Report, OB Food/Drug Interaction Guide, Opioid Safety, OB Home Care, OB Vaginal Deliveries - [facility], Patient Portal & [facility] Instructions, Abnormal Bleeding Discharge Attestations [employer] INS[employer] Time Spent in Discharge Care*: less than 30 min Coding Level of Care Code Acute Code for Chg Fwd Diagnoses Vaginal delivery O80
== END 2024-12-24 13:15 | disposition home or self-care (01) | DRG 807 ==
LOC: OPOB 06:04 → OBGYN 06:04
PROVIDERS: Admitting Provider Obstetrics & Gynecology; PCP Family Medicine; Visit Provider Obstetrics & Gynecology
DX: O48.0 Post-term pregnancy (principal); Z37.0 Single live birth; Z3A.40 40 weeks gestation of pregnancy; O99.824 Streptococcus B carrier state complicating childbirth; R12 Heartburn; O99.62 Diseases of the digestive system complicating childbirth
CPT/HCPCS: 36415; 51702; 59025; 59409; 83986; 85025; 85027; 86850; 86900; 96374; 99211; J2405; J2540; J2590; J2795; J7120; J7121; J9999